=== PATIENT | female | born 1990 | race Caucasian/White ===

== ENCOUNTER → 2017-07-18 | Outpatient (CLI) | payer OTHER ==
[~2017-07-18] MED LIST: IBUP800 PO; Percocet 5-3251 EACH PO
== END ==
LOC: LAB 16:04
DX: Z34.83 Encounter for supervision of other normal pregnancy, third trimester (principal); Z3A.36 36 weeks gestation of pregnancy
CPT/HCPCS: 87081; 87653

== ENCOUNTER 2017-07-27 18:58 | Inpatient (IN) | payer OTHER ==
[~2017-07-27] VITALS: Ht 149.9 cm; Wt 80.0 kg
[2017-07-27 20:28] LABS: Mean Corpuscular HGB 27.2 pg (26.0-34.0); Mean Corpuscular HGB Conc 33.3 g/dL (31.5-36.5); Mean Corpuscular Volume 82 fL (80-100); RDW Coefficient Variation 14.9 % (11.7-14.2); RDW Standard Deviation 44.1 fL (35.1-46.3); Red Blood Cell Count 4.41 M/mm3 (3.80-5.20); White Blood Cell Count 34.13 K/mm3 (4.00-11.30)
[2017-07-27 20:34] LABS: Mean Platelet Volume 11.1 fL (9.1-12.4); Platelet Count 215 K/mm3 (150-400)
[2017-07-27 20:51] LABS: BAND PERCENT MAN 19 % (0-8); BASOPHILS PERCENT MAN 0 % (0-2); EOSINOPHILS PERCENT MAN 0 % (0-6); LYMPHOCYTES ABSOLUTE MAN 1.02 K/mm3 (0.84-5.20); LYMPHOCYTES PERCENT MAN 3 % (21-46); MONOCYTES ABSOLUTE MAN 0.68 K/mm3 (0.16-1.47); MONOCYTES PERCENT MAN 2 % (4-13); NEUTROPHILS ABSOLUTE MAN 32.42 K/mm3 (1.96-9.15); SEG NEUTROPHILS PERCENT MAN 76 % (41-73); TOTAL CELLS COUNTED 100
[2017-07-28 06:14] LABS: Hematocrit 33.4 % (33.0-51.0); Mean Corpuscular HGB 27.2 pg (26.0-34.0); Mean Corpuscular HGB Conc 32.9 g/dL (31.5-36.5); Mean Corpuscular Volume 83 fL (80-100); Mean Platelet Volume 10.9 fL (9.1-12.4); Platelet Count 280 K/mm3 (150-400); RDW Coefficient Variation 14.8 % (11.7-14.2); RDW Standard Deviation 44.1 fL (35.1-46.3); Red Blood Cell Count 4.04 M/mm3 (3.80-5.20); White Blood Cell Count 32.67 K/mm3 (4.00-11.30)
[2017-07-28 06:29] LABS: BAND PERCENT MAN 21 % (0-8); BASOPHILS PERCENT MAN 0 % (0-2); EOSINOPHILS ABSOLUTE MAN 0.65 K/mm3 (0.00-0.68); EOSINOPHILS PERCENT MAN 2 % (0-6); LYMPHOCYTES ABSOLUTE MAN 1.96 K/mm3 (0.84-5.20); LYMPHOCYTES PERCENT MAN 6 % (21-46); MONOCYTES ABSOLUTE MAN 2.94 K/mm3 (0.16-1.47); MONOCYTES PERCENT MAN 9 % (4-13); NEUTROPHILS ABSOLUTE MAN 27.11 K/mm3 (1.96-9.15); SEG NEUTROPHILS PERCENT MAN 62 % (41-73); TOTAL CELLS COUNTED 100
[2017-07-29 08:32] LABS: BASOPHILS ABSOLUTE AUTO 0.09 K/mm3 (0.00-0.23); BASOPHILS PERCENT AUTO 1 % (0-2); EOSINOPHILS ABSOLUTE AUTO 0.56 K/mm3 (0.00-0.68); EOSINOPHILS PERCENT AUTO 3 % (0-6); Hematocrit 31.3 % (33.0-51.0); Hemoglobin 10.3 g/dL (11.5-16.0); IMMATURE GRAN ABSOLUTE AUTO 0.17 K/mm3 (0.00-0.10); IMMATURE GRAN PERCENT AUTO 1 % (0-1); LYMPHOCYTES ABSOLUTE AUTO 3.62 K/mm3 (0.84-5.20); LYMPHOCYTES PERCENT AUTO 21 % (21-46); MONOCYTES ABSOLUTE AUTO 1.12 K/mm3 (0.16-1.47); MONOCYTES PERCENT AUTO 7 % (4-13); Mean Corpuscular HGB 27.4 pg (26.0-34.0); Mean Corpuscular HGB Conc 32.9 g/dL (31.5-36.5); Mean Corpuscular Volume 83 fL (80-100); Mean Platelet Volume 10.9 fL (9.1-12.4); NEUTROPHILS ABSOLUTE AUTO 11.64 K/mm3 (1.96-9.15); NEUTROPHILS PERCENT AUTO 68 % (41-73); Platelet Count 274 K/mm3 (150-400); RDW Coefficient Variation 14.9 % (11.7-14.2); RDW Standard Deviation 44.6 fL (35.1-46.3); Red Blood Cell Count 3.76 M/mm3 (3.80-5.20)
[2017-07-29] MEDS ORDERED: Percocet 5-3251 EACH PO (09:29)
[2017-07-29] MEDS ORDERED: IBUP800 PO (09:30)
== END 2017-07-29 16:20 | disposition home or self-care (01) | DRG 775 ==
LOC: BC 18:58
PROVIDERS: Obstetrics & Gynecology
PROC: 10E0XZZ Delivery of Products of Conception, External Approach (ICD-10-PCS; principal; 2017-07-27)
DX: O62.3 Precipitate labor (principal); F17.200 Nicotine dependence, unspecified, uncomplicated; O69.81X0 Labor and delivery complicated by cord around neck, without compression, not applicable or unspecified; O99.824 Streptococcus B carrier state complicating childbirth; O99.334 Smoking (tobacco) complicating childbirth; Z37.0 Single live birth; Z3A.37 37 weeks gestation of pregnancy; Z91.040 Latex allergy status
CPT/HCPCS: 36415; 85025; J0690; J1885; J7120

== ENCOUNTER 2018-12-16 16:55 | Emergency (ER) | payer OTHER ==
[~2018-12-16] VITALS: Ht 149.9 cm; Wt 71.2 kg
[2018-12-16] MEDS ORDERED: IBUP800 PO (18:04)
[2018-12-16] MEDS ORDERED: ACET500 PO (18:06)
== END 2018-12-16 18:16 | disposition home or self-care (01) ==
LOC: ER 16:55
DX: M25.511 Pain in right shoulder (principal); R20.2 Paresthesia of skin; J45.909 Unspecified asthma, uncomplicated; F17.210 Nicotine dependence, cigarettes, uncomplicated
CPT/HCPCS: 99283-25

== ENCOUNTER 2019-10-12 06:24 | Inpatient (IN) | payer OTHER ==
[~2019-10-12] VITALS: Ht 149.9 cm; Wt 84.8 kg
[~2019-10-12 06:24] MED LIST changes: +ACET500 PO
[2019-10-12] MEDS ORDERED: PRENATAL TABLE1 EAC2 (08:02)
[2019-10-12] MEDS ORDERED: OMEP20ER (08:02)
[2019-10-12 08:35] LABS: BASOPHILS ABSOLUTE AUTO 0.06 K/mm3 (0.00-0.23); BASOPHILS PERCENT AUTO 0 % (0-2); EOSINOPHILS PERCENT AUTO 2 % (0-6); Hematocrit 39.7 % (33.0-51.0); Hemoglobin 12.9 g/dL (11.5-16.0); IMMATURE GRAN ABSOLUTE AUTO 0.08 K/mm3 (0.00-0.10); IMMATURE GRAN PERCENT AUTO 1 % (0-1); LYMPHOCYTES ABSOLUTE AUTO 2.68 K/mm3 (0.84-5.20); LYMPHOCYTES PERCENT AUTO 20 % (21-46); MONOCYTES ABSOLUTE AUTO 1.03 K/mm3 (0.16-1.47); MONOCYTES PERCENT AUTO 8 % (4-13); Mean Corpuscular HGB Conc 32.5 g/dL (31.5-36.5); Mean Corpuscular Volume 80 fL (80-100); Mean Platelet Volume 11.9 fL (9.1-12.4); NEUTROPHILS PERCENT AUTO 70 % (41-73); Platelet Count 242 K/mm3 (150-400); RDW Coefficient Variation 14.6 % (11.7-14.2); RDW Standard Deviation 41.6 fL (35.1-46.3); Red Blood Cell Count 4.97 M/mm3 (3.80-5.20); White Blood Cell Count 13.35 K/mm3 (4.00-11.30)
[2019-10-13 05:41] LABS: BASOPHILS ABSOLUTE AUTO 0.06 K/mm3 (0.00-0.23); BASOPHILS PERCENT AUTO 0 % (0-2); EOSINOPHILS ABSOLUTE AUTO 0.31 K/mm3 (0.00-0.68); EOSINOPHILS PERCENT AUTO 2 % (0-6); Hematocrit 37.3 % (33.0-51.0); Hemoglobin 11.8 g/dL (11.5-16.0); IMMATURE GRAN PERCENT AUTO 1 % (0-1); LYMPHOCYTES ABSOLUTE AUTO 3.04 K/mm3 (0.84-5.20); LYMPHOCYTES PERCENT AUTO 21 % (21-46); MONOCYTES ABSOLUTE AUTO 1.22 K/mm3 (0.16-1.47); MONOCYTES PERCENT AUTO 9 % (4-13); Mean Corpuscular HGB 25.7 pg (26.0-34.0); Mean Corpuscular HGB Conc 31.6 g/dL (31.5-36.5); Mean Corpuscular Volume 81 fL (80-100); Mean Platelet Volume 11.4 fL (9.1-12.4); NEUTROPHILS ABSOLUTE AUTO 9.68 K/mm3 (1.96-9.15); NEUTROPHILS PERCENT AUTO 67 % (41-73); Platelet Count 233 K/mm3 (150-400); RDW Coefficient Variation 14.5 % (11.7-14.2); Red Blood Cell Count 4.59 M/mm3 (3.80-5.20); White Blood Cell Count 14.41 K/mm3 (4.00-11.30)
--- NOTE | 2019-10-13 09:24 | NUR ---
PT REPORTS FEELING LIKE SHE NEEDS TO HAVE A BM, UNCOMFORTABLE. SHE STS SHE ALREADY TOOK COLACE LAST NIGHT AND DOESNT WANT ANOTHER ONE. I OFFERED TO MAKE PATIENT A MIXTURE OF WARM APPLE JUICE, PAT OF BUTTER, AND PRUNE JUICE TO HELP HER HAVE A BM
--- NOTE | 2019-10-13 10:23 | NUR ---
RN AND DR. DIGGS AT BEDSIDE FOR ASSESSMENT AND DISCUSSION OF PLAN OF CARE. VERBAL FROM DR. DIGGS TO TAKE OUT IV. ADDITIONAL CBC DRAWN THIS MORNING. PT GIVEN A FEW FEM CATHS TO TAKE HOME WITH INSTRUCTIONS FOR BLADDER TRAINING BY DR. DIGGS.
--- NOTE | 2019-10-13 13:07 | NUR ---
PT CALLED FOR PAIN MEDICATION. ELLIOTT KO RN WENT IN TO ASSESS PATIENT WHO WAS SITTING UP IN BED. I MEDICATED PER EMAR WITH IBUPROFEN AND I WAS IN THERE, PT ESCALATED TO CRYING AND CRAWLING UP THE BED SAYING SHE WAS IN SO MUCH PAIN. WHEN ASKED, PT SAID 10/. SHE STS IT IS A SHARP PAIN IN HER PERINEUM/VAGINA WHERE HER REPAIR WAS. FUNDUS FIRM, 1 FINER BELOW UMB. SCANT BLEEDING, NO CLOTS OR HEMATOMA SEEN WHEN I HER LABIA. PT REFUSED CHRIS SPRAY. SHE DID LET ME PLACE A COOL WITCH RODRIGUEZ PAD TO HER LABIA. REFUSED ICE DIAPER. I CALLED AND SPOKE WITH DR. SHAYLA MD, WHO GAVE A T.O. FOR PERCOCET 1-2 TABS Q4P PAIN. WILL BE IN TO ASSESS TODAY.
--- NOTE | 2019-10-13 19:02 | NUR ---
REPORT TO TESSA TORRES RN
[2019-10-13] MEDS ORDERED: HYDROCODON-ACE1 EAC3 PO (19:44)
[2019-10-13] MEDS ORDERED: IBUP800 PO (19:45)
--- NOTE | 2019-10-14 11:00 | NUR ---
pt given written and verbal dc instructions. verbalizes understanding and will return for follow up at [facility] 10/16/19 @ [address] jones for follow up.
--- NOTE | 2019-10-14 11:07 | NUR ---
RN ROUNDED TO HELP W/ . PT STATES FEEDING HAS BEEN GOING WELL, DENIES ANY QUESTIONS OR CONCERNS. EXPERIENCED MOM.
== END 2019-10-14 13:30 | disposition home or self-care (01) | DRG 807 ==
LOC: BC 06:24
PROVIDERS: ADMIT Obstetrics & Gynecology
PROC: 10E0XZZ Delivery of Products of Conception, External Approach (ICD-10-PCS; principal; 2019-10-12)
PROC: 0KQM0ZZ Repair Perineum Muscle, Open Approach (ICD-10-PCS; 2019-10-12)
PROC: 10907ZC Drainage of Amniotic Fluid, Therapeutic from Products of Conception, Via Natural or Artificial Opening (ICD-10-PCS; 2019-10-12)
PROC: 3E033VJ Introduction of Other Hormone into Peripheral Vein, Percutaneous Approach (ICD-10-PCS; 2019-10-12)
DX: O99.824 Streptococcus B carrier state complicating childbirth (principal); Z37.0 Single live birth; O62.3 Precipitate labor; O70.1 Second degree perineal laceration during delivery; Z3A.39 39 weeks gestation of pregnancy; F17.210 Nicotine dependence, cigarettes, uncomplicated; Z91.040 Latex allergy status
CPT/HCPCS: 36415; 85025; 86850; 86900; 86901; A9270; J0290; J1885; J2001; J2210; J2590; J3010; J7120

== ENCOUNTER → 2021-02-26 | Outpatient (CLI) | payer OTHER ==
[~2021-02-26] MED LIST changes: +HYDROCODON-ACE1 EAC3 PO; +OMEP20ER; +PRENATAL TABLE1 EAC2
== END ==
LOC: LAB 14:24 → LAB SHORT 14:24
DX: Z34.83 Encounter for supervision of other normal pregnancy, third trimester (principal); Z3A.36 36 weeks gestation of pregnancy
CPT/HCPCS: 87081; 87150

== ENCOUNTER 2021-03-30 06:02 | Inpatient (IN) | payer OTHER ==
[~2021-03-30] VITALS: Ht 149.9 cm; Wt 88.6 kg
[2021-03-30] MEDS ORDERED: PRENATAL TABLE1 EAC2 PO (06:25)
[2021-03-30] MEDS ORDERED: PRENATAL TABLE1 EAC2 (06:26)
[2021-03-30 07:04] LABS: Influenza A, PCR NEGATIVE (NEGATIVE); Influenza B, PCR NEGATIVE (NEGATIVE); Resp Syncytial Virus, PCR NEGATIVE (NEGATIVE); SARS-Cov-2 (COVID-19) PCR, MMC NEGATIVE (NEGATIVE)
[2021-03-30 07:05] LABS: BASOPHILS ABSOLUTE AUTO 0.06 K/mm3 (0.00-0.23); BASOPHILS PERCENT AUTO 1 % (0-2); EOSINOPHILS ABSOLUTE AUTO 0.17 K/mm3 (0.00-0.68); EOSINOPHILS PERCENT AUTO 1 % (0-6); Hematocrit 38.8 % (33.0-51.0); Hemoglobin 12.6 g/dL (11.5-16.0); IMMATURE GRAN ABSOLUTE AUTO 0.06 K/mm3 (0.00-0.10); IMMATURE GRAN PERCENT AUTO 1 % (0-1); LYMPHOCYTES ABSOLUTE AUTO 1.85 K/mm3 (0.84-5.20); LYMPHOCYTES PERCENT AUTO 14 % (21-46); MONOCYTES ABSOLUTE AUTO 1.06 K/mm3 (0.16-1.47); MONOCYTES PERCENT AUTO 8 % (4-13); Mean Corpuscular HGB 26.5 pg (26.0-34.0); Mean Corpuscular HGB Conc 32.5 g/dL (31.5-36.5); Mean Corpuscular Volume 82 fL (80-100); Mean Platelet Volume 11.4 fL (9.1-12.4); NEUTROPHILS ABSOLUTE AUTO 9.89 K/mm3 (1.96-9.15); NEUTROPHILS PERCENT AUTO 76 % (41-73); Platelet Count 249 K/mm3 (150-400); RDW Coefficient Variation 14.9 % (11.7-14.2); RDW Standard Deviation 44.5 fL (35.1-46.3); Red Blood Cell Count 4.75 M/mm3 (3.80-5.20); White Blood Cell Count 13.09 K/mm3 (4.00-11.30)
[2021-03-30 12:03] LABS: PCO2 Cord - Venous 41.9 mmHg (40-50); PO2 Cord - Venous 24.2 mmHg (28-32)
[2021-03-30 12:05] LABS: PCO2 Cord - Arterial 53.9 mmHg (40-50); PO2 Cord - Arterial 13.5 mmHg (16-20); pH Cord - Arterial 7.27 (7.28-7.35)
[2021-03-31 06:21] LABS: BASOPHILS ABSOLUTE AUTO 0.07 K/mm3 (0.00-0.23); BASOPHILS PERCENT AUTO 1 % (0-2); EOSINOPHILS ABSOLUTE AUTO 0.29 K/mm3 (0.00-0.68); EOSINOPHILS PERCENT AUTO 2 % (0-6); Hemoglobin 11.7 g/dL (11.5-16.0); IMMATURE GRAN ABSOLUTE AUTO 0.06 K/mm3 (0.00-0.10); IMMATURE GRAN PERCENT AUTO 1 % (0-1); LYMPHOCYTES ABSOLUTE AUTO 3.25 K/mm3 (0.84-5.20); LYMPHOCYTES PERCENT AUTO 27 % (21-46); MONOCYTES PERCENT AUTO 8 % (4-13); Mean Corpuscular HGB 26.4 pg (26.0-34.0); Mean Corpuscular HGB Conc 31.6 g/dL (31.5-36.5); Mean Corpuscular Volume 84 fL (80-100); Mean Platelet Volume 11.3 fL (9.1-12.4); NEUTROPHILS PERCENT AUTO 61 % (41-73); Platelet Count 184 K/mm3 (150-400); RDW Coefficient Variation 15.1 % (11.7-14.2); RDW Standard Deviation 45.7 fL (35.1-46.3); Red Blood Cell Count 4.43 M/mm3 (3.80-5.20); White Blood Cell Count 11.97 K/mm3 (4.00-11.30)
[2021-03-31] MEDS ORDERED: IBUP800 PO (10:08)
[2021-03-31] MEDS ORDERED: CYCL10 PO (10:09)
--- NOTE | 2021-03-31 14:44 | NUR ---
PT D/C HOME WITH WITH [facility] PROVIDING TRANSPORTATION, SCRIPTS SENT ELECTRONICALLY TO [facility] REVIWED SIGNED MOM INSTRUCTED TO RETURN TO [facility] IN X3 DAYS FOR PPFU.
== END 2021-03-31 13:40 | disposition home or self-care (01) | DRG 807 ==
LOC: OBS 06:02 → BC 06:03
PROVIDERS: ADMIT Family Medicine
PROC: 10E0XZZ Delivery of Products of Conception, External Approach (ICD-10-PCS; principal; 2021-03-30)
PROC: 3E033VJ Introduction of Other Hormone into Peripheral Vein, Percutaneous Approach (ICD-10-PCS; 2021-03-30)
DX: O24.429 Gestational diabetes mellitus in childbirth, unspecified control (principal); Z37.0 Single live birth; Z3A.39 39 weeks gestation of pregnancy; O99.824 Streptococcus B carrier state complicating childbirth; O76 Abnormality in fetal heart rate and rhythm complicating labor and delivery; Z20.822 Contact with and (suspected) exposure to COVID-19; Z67.10 Type A blood, Rh positive; O69.81X0 Labor and delivery complicated by cord around neck, without compression, not applicable or unspecified
CPT/HCPCS: 0241U; 36415; 51702; 82803; 82947; 85025; 86850; 86900; 86901; A9270; J0290; J1885; J2001; J2210; J2590; J3010; J7120

== ENCOUNTER 2021-10-27 11:42 | Day surgery (SDC) | payer OTHER ==
[~2021-10-27] VITALS: Ht 149.9 cm; Wt 80.2 kg
[~2021-10-27 11:42] MED LIST changes: +CYCL10 PO; +PRENATAL TABLE1 EAC2 PO
--- NOTE | 2021-10-27 13:16 | NUR ---
10/27/21 1316 Michael Brumfield FIRST IV ATTEMPT PAINFUL PER PT. TWO IV ATTEMPTS MADE BY EAN ARCE AND EAN HERNADEZ. THIRD IV ATTEMPT ON LEFT WRIST SUCCESSFUL.
--- NOTE | 2021-10-27 13:26 | NUR ---
10/27/21 1326 Florence Wilson ABOMINDAL AREAD PREPPED BY DDT. ERIKA AREA PREPPED BY JSANJUANITA. BUPIVACAINE 0.5% 50 MLS MIXED W/ EPI 0.25 PER ORDER TO MAKE BUPIVACAINE 0.5% 1:200,000 FOR INJECTION AT OPSITE. MULTI DOSE BOTTLE MIXED & VERIFIED IN OR BY RNS.
--- NOTE | 2021-10-27 14:59 | NUR ---
10/27/21 1459 Kandice Garcia PT C/O OF FOOT PAIN. RECOMENDED TO FOLLOW UP WITH HER PRIMARY CARE PRO VIDER
== END 2021-10-27 14:52 | disposition home or self-care (01) ==
LOC: ORSCSDS 11:42
PROVIDERS: Obstetrics & Gynecology
PROC: 0UT74ZZ Resection of Bilateral Fallopian Tubes, Percutaneous Endoscopic Approach (ICD-10-PCS; principal; 2021-10-27 13:00)
DX: Z30.2 Encounter for sterilization (principal); K21.9 Gastro-esophageal reflux disease without esophagitis; Z79.899 Other long term (current) drug therapy; E66.9 Obesity, unspecified; Z68.35 Body mass index [BMI] 35.0-35.9, adult
CPT/HCPCS: 88302; J1100; J1885; J2405; J2704; J3010; J7120

== ENCOUNTER 2022-10-29 21:43 | Emergency (ER) | payer OTHER ==
[~2022-10-29] VITALS: Ht 149.9 cm; Wt 84.4 kg
[2022-10-29 22:26] LABS: BASOPHILS ABSOLUTE AUTO 0.08 K/mm3 (0.00-0.23); BASOPHILS PERCENT AUTO 1 % (0-2); EOSINOPHILS ABSOLUTE AUTO 0.16 K/mm3 (0.00-0.68); EOSINOPHILS PERCENT AUTO 1 % (0-6); Hematocrit 45.3 % (33.0-51.0); Hemoglobin 15.2 g/dL (11.5-16.0); IMMATURE GRAN ABSOLUTE AUTO 0.04 K/mm3 (0.00-0.10); IMMATURE GRAN PERCENT AUTO 0 % (0-1); LYMPHOCYTES ABSOLUTE AUTO 2.22 K/mm3 (0.84-5.20); LYMPHOCYTES PERCENT AUTO 16 % (21-46); MONOCYTES ABSOLUTE AUTO 0.98 K/mm3 (0.16-1.47); MONOCYTES PERCENT AUTO 7 % (4-13); Mean Corpuscular HGB 28.1 pg (26.0-34.0); Mean Corpuscular HGB Conc 33.6 g/dL (31.5-36.5); Mean Corpuscular Volume 84 fL (80-100); Mean Platelet Volume 10.2 fL (9.1-12.4); NEUTROPHILS ABSOLUTE AUTO 10.29 K/mm3 (1.96-9.15); NEUTROPHILS PERCENT AUTO 75 % (41-73); Platelet Count 326 K/mm3 (150-400); RDW Coefficient Variation 13.5 % (11.7-14.2); RDW Standard Deviation 41.8 fL (35.1-46.3); Red Blood Cell Count 5.41 M/mm3 (3.80-5.20); White Blood Cell Count 13.77 K/mm3 (4.00-11.30)
[2022-10-29 22:38] LABS: Albumin, Blood 3.5 g/dL (3.4-5.0); Albumin/Globulin Ratio 0.9 (0.8-1.8); Bilirubin, Total 0.1 mg/dL (0.1-1.0); Bun/Creatinine Ratio 15.7 (12.0-20.0); Calcium, Blood 9.3 mg/dL (8.5-10.1); Creatinine, Blood 0.7 mg/dL (0.40-1.00); Total Protein, Blood 7.5 g/dL (6.4-8.2)
[2022-10-30 01:28] LABS: Source, Urine Clean Catch
[2022-10-30 01:33] LABS: Bilirubin, Urine Neg (Neg); Blood, Urine Neg (Neg); Glucose Qualitative, Urine Neg (Neg); Ketones, Urine Neg (Neg); Leukocyte Esterase, Urine 1+ (Neg); Nitrite, Urine Neg (Neg); Protein, Urine Neg (Neg); Specific Gravity, Urine 1.025 (1.003-1.022); Urobilinogen, Urine NORM (Normal)
[2022-10-30 01:40] LABS: Appearance, Urine Clear (Clear); Color, Urine Yellow (P-Yellow)
[2022-10-30 01:41] LABS: Amorphous Light (0-Heavy); Bacteria Few /hpf; Red Blood Cells, Urine Not Seen /hpf (0-2); Squamous Epithelial Cells Mod /hpf (Few)
[2022-10-30 04:45] VITALS: BP 163/90
== END 2022-10-30 05:03 | disposition home or self-care (01) ==
LOC: ER 21:43
PROVIDERS: Student in an Organized Health Care Education/Training Program
DX: K08.89 Other specified disorders of teeth and supporting structures (principal); R10.9 Unspecified abdominal pain; J45.909 Unspecified asthma, uncomplicated; Z91.030 Bee allergy status; Z91.040 Latex allergy status; F17.210 Nicotine dependence, cigarettes, uncomplicated
CPT/HCPCS: 74177; 80053; 81001; 81025; 83690; 85025; A9270; J1885; J2405; J7030; Q9967

== ENCOUNTER 2024-02-24 22:57 | Emergency (ER) | payer OTHER ==
[~2024-02-24] VITALS: Ht 149.9 cm; Wt 71.2 kg
[2024-02-25 00:07] VITALS: BP 126/82
== END 2024-02-25 00:01 | disposition home or self-care (01) ==
LOC: ER 22:57
DX: S61.215A Laceration without foreign body of left ring finger without damage to nail, initial encounter (principal); J45.909 Unspecified asthma, uncomplicated; F17.210 Nicotine dependence, cigarettes, uncomplicated; W23.0XXA Caught, crushed, jammed, or pinched between moving objects, initial encounter; Z91.040 Latex allergy status; Z91.030 Bee allergy status
CPT/HCPCS: 12001; 73130; 99283-25